=== PATIENT | female | born 2000 | race Hispanic/Latino ===

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

== ENCOUNTER 2020-02-06 07:13 | Emergency (ER) | payer MEDICAID ==
[2020-02-06] MEDS ORDERED: DEXAMETHASONE SOD PHOSPHATE 4 MG/ML 1ML VIAL ONE (07:48)
[2020-02-06] MEDS ORDERED: IPRATROPIUM/ALBUTEROL SULFATE 3 ML SOLUTION IH ONE (07:53)
== END 2020-02-06 08:34 | disposition home or self-care (01) ==
LOC: EDH 07:13
DX: J45.901 Unspecified asthma with (acute) exacerbation (principal)
CPT/HCPCS: 94640; 99283; J1100

== ENCOUNTER 2020-08-04 21:07 | Emergency (ER) | payer MEDICAID ==
[2020-08-04 21:50] LABS: BASOPHILS % (AUTO) 0.1 % (0.0-5.0); EOSINOPHILS % (AUTO) 0.9 % (0.0-8.0); HEMATOCRIT 40.8 % (36-48); MEAN CORPUSCULAR HEMOGLOBIN 28.7 pg (27.0-33.0); MEAN CORPUSCULAR HGB CONC 33.8 g/dL (32.0-36.0); MEAN CORPUSCULAR VOLUME 84.8 fL (80-100); MONOCYTES % (AUTO) 7.2 % (3.0-13.0); NEUTROPHILS % (AUTO) 64.5 % (40.0-77.0); PLATELET COUNT (AUTO) 293 K/uL (130-400); RED BLOOD CELL COUNT(AUTO) 4.81 MIL/uL (4.00-5.50); RED CELL DISTRIBUTION WIDTH 13.6 % (11.0-15.5); WHITE BLOOD COUNT (AUTO) 11.5 K/uL (4.8-10.8)
[2020-08-04 21:59] LABS: CARBON DIOXIDE 27 mmol/L (21-32); CHLORIDE 102 mmol/L (101-111); CREATININE 0.7 mg/dL (0.5-1.5); GLOMERULAR FILTR. RATE CALC 113 mL/min (>60); GLUCOSE,RANDOM 83 mg/dL (70-105); POTASSIUM 3.3 mmol/L (3.5-5.1); SODIUM SERUM 135 mmol/L (136-145); UREA NITROGEN, BLOOD 11 mg/dL (7-18)
[2020-08-04 22:26] LABS: ALANINE AMINOTRANSFERASE 17 U/L (12-78); ALBUMIN 3.9 g/dL (3.5-5.0); ASPARTATE AMINOTRANSFERASE 15 U/L (10-37); BILIRUBIN,TOTAL 0.4 mg/dL (0.2-1.0); TOTAL PROTEIN, SERUM 7.9 g/dL (6.0-8.3)
[2020-08-04] MEDS ORDERED: POTASSIUM CHLORIDE 20 MEQ ERTAB PO ONE (22:30)
[2020-08-04 22:32] LABS: HCG,QUANTITATIVE > 200000 mIU/mL (0-5)
== END 2020-08-04 23:47 | disposition home or self-care (01) ==
LOC: EDH 21:07
DX: O21.9 Vomiting of pregnancy, unspecified (principal); O26.891 Other specified pregnancy related conditions, first trimester; R10.30 Lower abdominal pain, unspecified; Z20.828 Contact with and (suspected) exposure to other viral communicable diseases; F41.9 Anxiety disorder, unspecified; F31.9 Bipolar disorder, unspecified; O99.511 Diseases of the respiratory system complicating pregnancy, first trimester; J45.909 Unspecified asthma, uncomplicated; Z3A.01 Less than 8 weeks gestation of pregnancy
CPT/HCPCS: 36415; 76801; 80053; 84702; 85025; 86900; 86901; 87426

== ENCOUNTER 2021-11-28 10:32 | Emergency (ER) | payer MEDICAID ==
[~2021-11-28] VITALS: Ht 167.6 cm; Wt 49.0 kg
[2021-11-28 10:33] VITALS: BP 112/65
== END 2021-11-28 13:12 | disposition left against medical advice (07) ==
LOC: EDH 10:32
DX: R05.9 Cough, unspecified (principal); J02.9 Acute pharyngitis, unspecified; Z20.822 Contact with and (suspected) exposure to COVID-19; Z53.21 Procedure and treatment not carried out due to patient leaving prior to being seen by health care provider
CPT/HCPCS: 87635; 87804 ×2; C9803

== ENCOUNTER 2022-05-29 16:10 | Emergency (ER) | payer MEDICAID ==
[~2022-05-29] VITALS: Ht 167.6 cm; Wt 54.4 kg
[2022-05-29 16:45] LABS: APPEARANCE,URINE SL CLOUDY (CLEAR); BILIRUBIN,URINE NEGATIVE (NEGATIVE); COLOR,URINE YELLOW (YELLOW); GLUCOSE, URINE (UA) NEGATIVE (NEGATIVE); KETONES,URINE NEGATIVE (NEGATIVE); LEUKOCYTE ESTERASE ,URINE NEGATIVE (NEGATIVE); NITRATE,URINE NEGATIVE (NEGATIVE); OCCULT BLOOD,URINE MODERATE (NEGATIVE); PROTEIN,URINE NEGATIVE (NEGATIVE); UROBILINOGEN,URINE 0.2 mg/dL (0.2-1.0)
[2022-05-29 16:54] LABS: BACTERIA,URINE Few /HPF (None Seen); MUCUS,URINE Rare LPF (None Seen); SQUAMOUS EPITHELIAL CELL,UR Many /HPF (0-2); WBC,URINE 0-1 /HPF (0-1)
[2022-05-29] MEDS ORDERED: AZIT500T2 PO (17:40)
[2022-05-29] MEDS ORDERED: BENZ-39 PO (17:40)
[2022-05-29] MEDS ORDERED: FEXO1TAB5 PO (17:40)
[2022-05-29 18:14] VITALS: BP 118/68
== END 2022-05-29 18:16 | disposition home or self-care (01) ==
LOC: EDH 16:10
DX: J02.9 Acute pharyngitis, unspecified (principal); R50.9 Fever, unspecified; R51.9 Headache, unspecified; Z20.822 Contact with and (suspected) exposure to COVID-19
CPT/HCPCS: 99283; 87635; 87804 ×2; 81001; C9803

== ENCOUNTER 2022-07-14 20:10 | Emergency (ER) | payer MEDICAID ==
[~2022-07-14] VITALS: Ht 167.6 cm; Wt 55.3 kg
[~2022-07-14 20:10] MED LIST changes: +AZIT500T2 PO; +BENZ-39 PO; +FEXO1TAB5 PO
[2022-07-14] MEDS ORDERED: IBUPROFEN 400 MG TABLET PO ONE (21:30)
[2022-07-14 22:26] VITALS: BP 104/75
[2022-07-14] MEDS ORDERED: IBUP-2070 PO (22:48)
[2022-07-14] MEDS ORDERED: DEXAMETHASONE SOD PHOSPHATE 4 MG/ML 1ML VIAL ONE (22:53)
[2022-07-14] MEDS ORDERED: PENICILLIN G BENZATHINE LA 1.2 MILUNITS/2 ML SYG ONE (22:56)
[2022-07-14] MEDS ORDERED: PENICILLIN G BENZATHINE LA 1.2 MILUNITS/2 ML SYG IM ONE (23:00)
[2022-07-14] MEDS ORDERED: DEXAMETHASONE SOD PHOSPHATE 4 MG/ML 1ML VIAL IM ONE (23:00)
== END 2022-07-14 23:09 | disposition home or self-care (01) ==
LOC: EDH 20:10
DX: J02.0 Streptococcal pharyngitis (principal); Z20.822 Contact with and (suspected) exposure to COVID-19
CPT/HCPCS: 99284; 87635; 87880; 87804 ×2; 96372 ×2; J1100; J0561; C9803

== ENCOUNTER 2022-11-18 15:26 | Emergency (ER) | payer MEDICAID ==
[~2022-11-18] VITALS: Ht 167.6 cm; Wt 59.0 kg
[~2022-11-18 15:26] MED LIST changes: +IBUP-2070 PO
[2022-11-18] MEDS ORDERED: KETOROLAC 30MG VIAL (30MG/ML) IM ONE (17:00)
[2022-11-18] MEDS ORDERED: AMOX1TAB16 PO (17:36)
[2022-11-18] MEDS ORDERED: IBUP-2070 PO (17:36)
[2022-11-18 17:40] VITALS: BP 107/63
== END 2022-11-18 17:53 | disposition home or self-care (01) ==
LOC: EDH 15:26
DX: S64.92XA Injury of unspecified nerve at wrist and hand level of left arm, initial encounter (principal); J02.0 Streptococcal pharyngitis; B95.5 Unspecified streptococcus as the cause of diseases classified elsewhere; Z98.890 Other specified postprocedural states; X58.XXXA Exposure to other specified factors, initial encounter; Y93.89 Activity, other specified; Y92.89 Other specified places as the place of occurrence of the external cause; Y99.8 Other external cause status
CPT/HCPCS: 99283; 87880; 96372; J1885

== ENCOUNTER 2022-11-29 21:39 | Emergency (ER) | payer MEDICAID ==
[~2022-11-29] VITALS: Ht 167.6 cm; Wt 58.1 kg
[~2022-11-29 21:39] MED LIST changes: +AMOX1TAB16 PO
[2022-11-29 21:41] VITALS: BP 105/73
[2022-11-29] MEDS ORDERED: AMOX1TAB16 PO (22:55)
[2022-11-29] MEDS ORDERED: BACI30OI6 TP (22:55)
== END 2022-11-29 23:15 | disposition home or self-care (01) ==
LOC: EDH 21:39
DX: S81.011A Laceration without foreign body, right knee, initial encounter (principal); Z79.1 Long term (current) use of non-steroidal anti-inflammatories (NSAID); Z79.899 Other long term (current) drug therapy; W18.30XA Fall on same level, unspecified, initial encounter; Y93.89 Activity, other specified; Y92.89 Other specified places as the place of occurrence of the external cause; Y99.8 Other external cause status

== ENCOUNTER 2023-08-06 04:54 | Emergency (ER) | payer MEDICAID, OTHER ==
[~2023-08-06] VITALS: Ht 167.6 cm; Wt 51.3 kg
[~2023-08-06 04:54] MED LIST changes: +BACI30OI6 TP
[2023-08-06 05:28] LABS: BASOPHILS # (AUTO) 0.03 K/uL (0.00-0.20); BASOPHILS % (AUTO) 0.2 % (0.0-5.0); EOSINOPHILS # (AUTO) 0.32 K/uL (0.00-0.70); EOSINOPHILS % (AUTO) 1.7 % (0.0-8.0); IMMATURE GRANULOCYTE ABSOLUTE 0.09 K/uL (0-1); LYMPHOCYTES # (AUTO) 2.3 K/uL (1.0-4.8); LYMPHOCYTES % (AUTO) 12.2 % (21.0-51.0); MEAN CORPUSCULAR HEMOGLOBIN 27.6 pg (27.0-33.0); MEAN CORPUSCULAR HGB CONC 33.3 g/dL (32.0-36.0); MEAN CORPUSCULAR VOLUME 82.9 fL (79-99); MONOCYTES % (AUTO) 5.6 % (3.0-13.0); NEUTROPHILS # (AUTO) 14.9 K/uL (1.8-7.7); NEUTROPHILS % (AUTO) 79.8 % (40.0-77.0); PLATELET COUNT (AUTO) 324 K/uL (130-400); RED BLOOD CELL COUNT(AUTO) 5.55 MIL/uL (4.00-5.50); RED CELL DISTRIBUTION WIDTH 13.6 % (11.0-15.5); WHITE BLOOD COUNT (AUTO) 18.6 K/uL (4.8-10.8)
[2023-08-06] MEDS ORDERED: LACTATED RINGERS 1000ML 2,000 ML IV ONE (05:30)
[2023-08-06] MEDS ORDERED: DIPHENOXYLATE HCL/ATROPINE 2.5/0.025 MG TAB PO ONE (05:30)
[2023-08-06 06:00] LABS: ALBUMIN 4.3 g/dL (3.5-5.0); BILIRUBIN,TOTAL 0.8 mg/dL (0.2-1.0); CREATININE 0.8 mg/dL (0.5-1.5); POTASSIUM 3.4 mmol/L (3.5-5.1); TOTAL PROTEIN, SERUM 8.7 g/dL (6.0-8.3)
[2023-08-06 06:28] LABS: ADD UA MICROSCOPIC YES
[2023-08-06] MEDS ORDERED: IOHEXOL-350 75 ML VIAL IV ONE (06:30)
[2023-08-06 06:49] LABS: APPEARANCE,URINE CLOUDY (CLEAR); BACTERIA,URINE RARE /HPF (None Seen); BILIRUBIN,URINE NEGATIVE (NEGATIVE); COLOR,URINE YELLOW (YELLOW); GLUCOSE, URINE (UA) NEGATIVE (NEGATIVE); KETONES,URINE 10 mg/dL (NEGATIVE); LEUKOCYTE ESTERASE ,URINE NEGATIVE Leu/uL (NEGATIVE); MUCUS,URINE MOD LPF (None Seen); NITRATE,URINE NEGATIVE (NEGATIVE); PH,URINE 5.5 (5.0-8.0); PROTEIN,URINE 20 mg/dL (NEGATIVE); SQUAMOUS EPITHELIAL CELL,UR MOD /HPF (0-2); UROBILINOGEN,URINE 0.2 mg/dL (0.2-1.0)
[2023-08-06] MEDS ORDERED: CIPR-278 PO (09:10)
[2023-08-06] MEDS ORDERED: ONDA4TAB10 PO (09:10)
[2023-08-06] MEDS ORDERED: LEVOFLOXACIN 500 MG TABLET PO SCH (09:30)
[2023-08-06 10:37] VITALS: BP 112/70; PULSE 72; RESP 18; O2SAT 98
== END 2023-08-06 10:38 | disposition home or self-care (01) ==
LOC: EDH 04:54
DX: K52.9 Noninfective gastroenteritis and colitis, unspecified (principal); E86.0 Dehydration; Z79.899 Other long term (current) drug therapy; Z98.890 Other specified postprocedural states; Z88.8 Allergy status to other drugs, medicaments and biological substances
CPT/HCPCS: 99285; 74177; 96360; 96361; 82150; 80053; 84702; 83690; 85025; 81001; 36415; J7120; Q9967

== ENCOUNTER 2023-11-10 03:31 | Emergency (ER) | payer BC, MEDICAID ==
[~2023-11-10] VITALS: Ht 167.6 cm; Wt 51.3 kg
[~2023-11-10 03:31] MED LIST changes: -AMOX1TAB16 PO; -AZIT500T2 PO; -BACI30OI6 TP; +CIPR-278 PO; +ONDA4TAB10 PO
[2023-11-10 04:18] LABS: BASOPHILS # (AUTO) 0.05 K/uL (0.00-0.20); BASOPHILS % (AUTO) 0.5 % (0.0-5.0); EOSINOPHILS # (AUTO) 0.54 K/uL (0.00-0.70); EOSINOPHILS % (AUTO) 5.1 % (0.0-8.0); HEMATOCRIT 43.3 % (36-48); IMMATURE GRANULOCYTE ABSOLUTE 0.02 K/uL (0-1); LYMPHOCYTES # (AUTO) 4.4 K/uL (1.0-4.8); LYMPHOCYTES % (AUTO) 41.8 % (21.0-51.0); MEAN CORPUSCULAR HGB CONC 33.3 g/dL (32.0-36.0); MEAN CORPUSCULAR VOLUME 84.2 fL (79-99); MONOCYTES # (AUTO) 0.8 K/uL (0.1-1.0); MONOCYTES % (AUTO) 7.8 % (3.0-13.0); NEUTROPHILS # (AUTO) 4.7 K/uL (1.8-7.7); NEUTROPHILS % (AUTO) 44.6 % (40.0-77.0); PLATELET COUNT (AUTO) 338 K/uL (130-400); RED BLOOD CELL COUNT(AUTO) 5.14 MIL/uL (4.00-5.50); RED CELL DISTRIBUTION WIDTH 13.9 % (11.0-15.5); WHITE BLOOD COUNT (AUTO) 10.5 K/uL (4.8-10.8)
[2023-11-10 04:26] LABS: APPEARANCE,URINE CLEAR (CLEAR); BILIRUBIN,URINE NEGATIVE (NEGATIVE); COLOR,URINE LIGHT-YELLOW (YELLOW); GLUCOSE, URINE (UA) NEGATIVE (NEGATIVE); KETONES,URINE NEGATIVE (NEGATIVE); LEUKOCYTE ESTERASE ,URINE NEGATIVE Leu/uL (NEGATIVE); NITRATE,URINE NEGATIVE (NEGATIVE); PROTEIN,URINE NEGATIVE (NEGATIVE); UROBILINOGEN,URINE 0.2 mg/dL (0.2-1.0)
[2023-11-10 04:27] LABS: CREATININE 0.7 mg/dL (0.5-1.5); POTASSIUM 3.8 mmol/L (3.5-5.1)
[2023-11-10 04:31] LABS: ADD UA MICROSCOPIC YES
[2023-11-10 04:32] LABS: ALBUMIN 3.5 g/dL (3.5-5.0); BILIRUBIN,TOTAL 0.1 mg/dL (0.2-1.0)
[2023-11-10 04:32] LABS: BACTERIA,URINE RARE /HPF (None Seen); MUCUS,URINE RARE LPF (None Seen); SQUAMOUS EPITHELIAL CELL,UR MOD /HPF (0-2); WBC,URINE 0-1 /HPF (0-1)
[2023-11-10 04:38] LABS: SARS-CoV-2, RNA, NAAT NEGATIVE SARS CoV-2 (NEGATIVE)
[2023-11-10 04:42] LABS: INFLUENZA TYPE A Negative For Type A (NEGATIVE)
[2023-11-10 04:47] LABS: INFLUENZA TYPE B Positive For Type B (NEGATIVE)
[2023-11-10] MEDS ORDERED: IPRATROPIUM/ALBUTEROL SULFATE 3 ML SOLUTION IH ONE ×2 (05:09→05:30)
[2023-11-10] MEDS ORDERED: IOHEXOL 350 MG/ML 100ML INFUS..BTL IV ONE (05:18)
[2023-11-10 05:41] VITALS: PULSE 73; RESP 14
[2023-11-10] MEDS ORDERED: NAPR-1192 PO (09:50)
[2023-11-10] MEDS ORDERED: ALBUHFA IH (09:50)
[2023-11-10] MEDS ORDERED: OSEL75 PO (09:50)
[2023-11-10] MEDS ORDERED: BENZ-39 PO (09:50)
[2023-11-10 09:59] VITALS: PULSE 85; RESP 20
[2023-11-10] MEDS ORDERED: LACTATED RINGERS 1000ML 1,000 ML IV ONE (10:00)
[2023-11-10] MEDS ORDERED: KETOROLAC 30MG VIAL (30MG/ML) IVP ONE (10:00)
[2023-11-10] MEDS ORDERED: FAMOTIDINE 20MG VIAL IV ONE (10:00)
[2023-11-10] MEDS ORDERED: OSELTAMIVIR PHOSPHATE 75 MG CAP PO ONE (10:00)
[2023-11-10] MEDS ORDERED: ALBUTEROL 0.083% 2.5 MG/3 ML INH IH ONE (10:00)
[2023-11-10] MEDS ORDERED: METOCLOPRAMIDE 10 MG/2 ML VIAL IVP ONE (10:00)
[2023-11-10 10:52] VITALS: BP 104/50; PULSE 64; RESP 16; O2SAT 99
== END 2023-11-10 10:46 | disposition home or self-care (01) ==
LOC: EDH 03:31
DX: J10.1 Influenza due to other identified influenza virus with other respiratory manifestations (principal); R07.89 Other chest pain; Z79.01 Long term (current) use of anticoagulants; Z20.822 Contact with and (suspected) exposure to COVID-19
CPT/HCPCS: 99285; 74174; 96374; 71275; 71045; 96375; 87635; 96361; 84484; 80053; 84703; 85025; 85378; 85730; 87804 ×2; 81001; 36415; 93005; 94640 ×2; C9803; J7120; J3490; J1885; J2765; Q9967

== ENCOUNTER 2023-12-27 18:49 | Emergency (ER) | payer BC ==
[~2023-12-27] VITALS: Ht 167.6 cm; Wt 49.9 kg
[~2023-12-27 18:49] MED LIST changes: +ALBUHFA IH; +NAPR-1192 PO; +OSEL75 PO
[2023-12-27 20:26] VITALS: BP 109/69; PULSE 98; RESP 20
[2023-12-27 20:53] LABS: RAPID GROUP A STREP negative (NEGATIVE)
[2023-12-27 20:56] LABS: SARS-CoV-2, RNA, NAAT NEGATIVE SARS CoV-2 (NEGATIVE)
[2023-12-27 21:00] LABS: INFLUENZA TYPE A Negative For Type A (NEGATIVE); INFLUENZA TYPE B Negative For Type B (NEGATIVE)
[2023-12-27] MEDS ORDERED: GUAI5LIQ13 PO (21:59)
== END 2023-12-27 22:45 | disposition home or self-care (01) ==
LOC: EDH 18:49
DX: J06.9 Acute upper respiratory infection, unspecified (principal); R05.9 Cough, unspecified; R50.9 Fever, unspecified; J45.909 Unspecified asthma, uncomplicated; Z20.822 Contact with and (suspected) exposure to COVID-19
CPT/HCPCS: 87635; 87804; 87880